=== PATIENT | male | born 1985 ===

== ENCOUNTER 2017-04-27 22:35 | Emergency (ER) ==
--- NOTE | 2017-04-27 22:45 | ED Physician Documentation ---
Dyspnea - HISTORIAN Historian: patient, friend - [facility] Chief Complaint: Dyspnea Additional Information: onset sore throat 1000hrs then coughing spedd approx 30 min ago yellowish mucoid feeling throat filled up. no unusual foods or insect stings. no similar ever previously Duration: continues in ED Initiating Event: denies: upper respiratory illness, out of meds, sports, exercise, environmental allergy, aspiration, choking, exposure to smoke, exposure to mold Severity: mild, moderate Exacerbated By: exertion Associated Symptoms: productive cough, heart racing, other (anxiety) - ROS CONST: no problems EYES/ENT: none, sore throat. denies: problems with vision, nasal drainage GI/: none NEURO/PSYCH: denies: headache MS/SKIN/LYMPH: none - PAST HX Lung Disease: none Cardiac Disease: none PE Risk Factors: hypertension Surgeries/Procedures: none Other History: none Allergies/Adverse Reactions: Allergies Allergy/AdvReac Type Severity Reaction Status Date / Time No Known Allergies Allergy Unverified 04/27/17 22:52 Home Medications: Ambulatory Orders Medication Instructions Recorded Albuterol Sulfate [ProAir 1 puff INH Q6H #1 inhaler 04/28/17 [facility]] Azithromycin 500 mg PO 1T #5 tablet 04/28/17 - SOCIAL HX Smoking History: non-smoker Alcohol Use: none Drug Use: none - FAMILY HX Family History: no significant history - REVIEWED ASSESSMENTS Nursing Assessment Reviewed: Yes Vitals Reviewed: Yes ED Results Lab/Radiology - Radiology Radiology Impressions: acute bronchitis - Orders Orders: ED Orders Category Date Time Status Place IV Lock 1T Care 04/27/17 22:42 Ordered Dexamethasone Sod Phosphate [Decadron] Med 04/27/17 22:39 Once 8 mg IVP NOW ONE Famotidine [Pepcid] Med 04/27/17 23:00 Ordered 40 mg PO 0700 LORazepam [Ativan] Med 04/27/17 22:40 Once 0.5 mg IVP NOW ONE Loratadine [Claritin] Med 04/27/17 22:40 Once 10 mg PO NOW ONE Dyspnea Physical Exam - EXAM General Appearance: mild distress, moderate distress EENT: eye inspection normal Neck: nml inspection. No: lymphadenopathy Respiratory: no resp. distress, breath sounds nml, speaks full sentences. No: respiratory distress, accessory muscle use CVS: reg. rate & rhythm, no murmur, pulses equal. No: irregularly irreg. rhythm Abdomen: non-tender Skin: color nml, no rash. No: cyanosis, diaphoresis, pallor, ecchymosis Extremities: non-tender, normal range of motion, no evidence of injury, no edema Neuro/Psych: oriented x3, motor nml, sensation nml, other (slight anxiety apparent) Discharge Clincal Impression: aacute bronchitis Prescriptions: Albuterol Sulfate [ProAir [facility]] 1 puff INH Q6H #1 inhaler Azithromycin 500 mg PO 1T #5 tablet Referrals: Primary Doctor,No [Primary Care Provider] - 2 Days Home Medications: Ambulatory Orders Albuterol Sulfate [ProAir [facility]pi[facility]] 1 puff INH Q6H #1 inhaler 04/28/17 Azithromycin 500 mg PO 1T #5 tablet 04/28/17 Condition: Good Disposition: 01 HOME, SELF-CARE Decision to Admit: NO Decision Time: 01:29
[2017-04-27] MEDS: LORATADINE 10 MG TABLET PO ONE (23:04)
[2017-04-27] MEDS: DEXAMETHASONE SOD PHOS 4 MG/ML VIAL IVP ONE (23:05)
[2017-04-27] MEDS: LORazepam 2 MG/ML VIAL IVP ONE (23:07)
[2017-04-27 23:17] LABS: eGFR (African) > 60; eGFR (Non-African) > 60
[2017-04-27 23:23] LABS: BASOPHILS % 0.6 (0.0-1.5); EOSINOPHILS % 1.6 % (0.0-6.8); MEAN CORPUSCULAR HEMOGLOBIN 31.2 pg (28.0-34.0); MEAN CORPUSCULAR VOLUME 85.6 fl (80.0-100.0); MONOCYTES % 3.2 % (0.0-11.0); NEUTROPHILS # 9.3 # k/uL (1.4-7.7)
[2017-04-27] MEDS: FAMOTIDINE 20 MG TABLET PO SCH (23:33)
[2017-04-27] MEDS ORDERED: FAMOTIDINE 20 MG TABLET ONE ×2 (23:34→23:36)
[2017-04-28] MEDS: ALBUTEROL SULFATE 2.5 MG/0.5 ML AMPUL.NEB NEB ONE (00:57)
[2017-04-28] MEDS ORDERED: AZITHROMYCIN 250 MG TABLET PO ONE (01:25)
[2017-04-28] MEDS ORDERED: IPRATROPIUM/ALBUTEROL SULFATE 3 ML AMPUL.NEB NEB ONE (01:25)
[2017-04-28] MEDS: AZITHROMYCIN 250 MG TABLET PO ONE (01:27)
[2017-04-28] MEDS: IPRATROPIUM/ALBUTEROL SULFATE 3 ML AMPUL.NEB NEB ONE (01:29)
[2017-04-28 01:49] VITALS: BP 151/88
[2017-04-28 05:39] LABS: ABG BASE EXCESS 3.5 (-2 - +2); ABG PH 7.45 (7.35-7.45)
--- NOTE | 2017-04-28 06:57 | Diagnostic Imaging Report ---
ALPHONSE VILLAR [facility] [id number] [facility] [address] [address] Report Submission Date: Apr 27, 2017 11:43:36 PM CDT Patient Study Name: PRABHU MAHONEY Date: Apr 27, 2017 11:23:26 PM CDT Modality Type: CR Gender: M Description: CHEST : 89 Institution: [facility] Physician: ALPHONSE VILLAR Chest 2 views History: Shortness of breath and cough Findings: Low lung volumes are observed, possibly related to obesity. The lateral film is nondiagnostic. Heart size is borderline enlarged. Pulmonary vascularity is normal. There is no infiltrate or effusion. Impression: Low lung volumes, possibly related to obesity. Electronically signed on Apr 27, 2017 11:43:36 PM CDT by: Rishi RAM
== END 2017-04-28 01:44 | disposition home or self-care (01) ==
LOC: ED 22:35
DX: J20.9 Acute bronchitis, unspecified (principal)
CPT/HCPCS: 36600; 71020; 80053; 82803; 85025; 93005; J1100; J2060; 96374; 96375; 99283; S1016